=== PATIENT | male | born 1990 | race Two or more races ===

== ENCOUNTER → 2025-06-09 | Outpatient (CLI) | payer MEDICAID, SELFPAY ==
--- NOTE | 2025-06-09 12:23 | XR_ITS ---
Examination: Lumbar spine, 5 views Technique: Lumbar spine AP, lateral, coned lateral lower lumbar spine, bilateral obliques 5 views Exam date and time: June 09, 2025 1308 hours, comparison November 21, 2019 INDICATIONS: Low back pain beginning 2 years ago. FINDINGS: Adequate alignment lumbar vertebral bodies on the lateral view Mild to moderate disc narrowing L5-S1 No spondylolisthesis Mild lumbar spondylosis IMPRESSION: Mild to moderate lumbar degenerative disc disease L5-S1
--- NOTE | 2025-06-09 12:23 | XR_ITS ---
EXAMINATION: Cervical spine, 5 views Technique: Cervical spine AP, AP odontoid, lateral, bilateral obliques, 5 views Exam date and time: June 09, 2025 1308 hours INDICATIONS: Neck pain beginning 3 months ago. FINDINGS: Satisfactory alignment cervical vertebral bodies. No cervical fracture. Intact odontoid. No significant cervical disc narrowing. No neural foraminal stenosis IMPRESSION: No cervical fracture or significant arthritic change
== END | disposition home or self-care (01) ==
PROVIDERS: PCP Physician Assistant; Referring Provider Physician Assistant; Visit Provider Physician Assistant
DX: M54.2 Cervicalgia (principal); M51.370 Other intervertebral disc degeneration, lumbosacral region with discogenic back pain only; M51.360 Other intervertebral disc degeneration, lumbar region with discogenic back pain only
CPT/HCPCS: 72050; 72110